=== PATIENT | male | born 1960 | race Caucasian/White ===

== ENCOUNTER 2017-03-15 19:27 | Emergency (ER) | payer OTHER ==
[2017-03-15 20:55] LABS: BASOPHIL % 0.5 % (0-2); PLATELET COUNT 196 x10^3mcL (130-400); RED CELL DISTRIBUTION WIDTH 12.3 % (11.5-14.5)
[2017-03-15 21:04] LABS: CALCIUM 8.7 mg/dL (8.5-10.1); CARBON DIOXIDE 29.5 mmol/L (21-32); CHLORIDE SERUM 99 mmol/L (98-107); CREATININE SERUM 0.9 mg/dL (0.7-1.3); GFR1 > 60 mL/min; GLUCOSE SERUM 213 mg/dL (74-106); POTASSIUM SERUM 3.8 mmol/L (3.5-5.1); SODIUM SERUM 136 mmol/L (136-145)
[2017-03-15 21:15] LABS: microscopic required? YES; urine erythrocyte NEGATIVE (NEGATIVE)
[2017-03-15 21:19] LABS: FREE T4 1.22 ng/dL (0.76-1.46)
[2017-03-15 21:55] VITALS: BP 106/72
== END 2017-03-15 21:55 | disposition home or self-care (01) ==
LOC: ED 19:27
PROVIDERS: Emergency Medicine
DX: R42 Dizziness and giddiness (principal); E11.9 Type 2 diabetes mellitus without complications; E78.00 Pure hypercholesterolemia, unspecified
CPT/HCPCS: 36415; 84439